=== PATIENT | female | born 1980 | race Caucasian/White ===

== ENCOUNTER 2024-06-17 09:14 | Emergency (ER) | payer BC, SELFPAY ==
--- NOTE | ~2024-06-17 | XR_ITS ---
EXAMINATION: XR ankle LT min 3V DATE: 06/17/2024 09:44 INDICATION: Left ankle injury and pain. TECHNIQUE: 4 views of left ankle were obtained. COMPARISON: None. FINDINGS: There is oblique fracture of distal fibula with medial aspect of the fracture line at the l evel of the tibial plafond. The distal fracture fragment demonstrates 2 mm posterolateral displacemen t. Joint spaces are normal. There is an enthesophyte at plantar aspect of calcaneal tuberosity. Later al ankle soft tissue swelling is noted. IMPRESSION: 1. Oblique fracture of distal fibula. Reviewed, dictated and finalized at location A. [employer]
[2024-06-17 09:28] VITALS: BP 148/137; PULSE 94; RESP 18; TEMP 37; O2SAT 100
--- NOTE | 2024-06-17 09:46 | PC.NURSE ---
PT DECLINED WHEELCHAIR TO RADIOLOGY AND ICE FOR COMFORT
--- NOTE | 2024-06-17 10:02 | ED_ITS ---
HPI - Extremity Injury (Lower) General Chief Complaint: Extremity Injury, Lower Stated Complaint: FALL Time Seen by Provider: 06/17/24 10:02 Source: patient Mode of arrival: ambulatory Limitations: no limitations History of Present Illness HPI Narrative: 43-year-old female presented for complaint of left ankle pain and swelling after injury last night. She states she was wearing wedge shoes when she stepped off of a [employer] and will the ankle. Endorses feeling a grinding sensation when she walks. Has been able to bear weight onto the heel. Endorses decreased range of motion due to pain. Taking Tylenol, ibuprofen. Pt resides in [place]. Related Data Home Medications ?Medication ?Instructions ?Recorded ?Confirmed ?Last Taken ?Type desogestrel-ethinyl estradiol 0.1 tablet 06/17/24 Unknown History mg/0.125 mg/0.15 mg-25 mcg tablet (Velivet Triphasic Regimen (28)) lisinopril 20 tablet 06/17/24 Unknown History mg-hydrochlorothiazide 12.5 mg tablet Allergies Allergy/AdvReac Type Severity Reaction Status Date / Time No Known Allergies Allergy Verified 06/17/24 09:42 Review of Systems Review of Systems: CONSTITUTIONAL: Denies body aches, fever, chills CARDIOVASCULAR: Denies chest pain, palpitations, or edema. RESPIRATORY: Denies cough or dyspnea. SKIN: Denies rash, itching, or wounds. MUSCULOSKELETAL: Reports left ankle pain and swelling NEUROLOGIC: Denies numbness, tingling, or weakness. All systems reviewed & are unremarkable except as noted in HPI and below PMFSH Comments At time of signature, I have reviewed and agree with nursing past medical, surgical, social and family history unless otherwise noted. Please see nursing chart for further information. There is no relevant family history pertinent to the presenting complaint Exam Narrative: GENERAL: Well-appearing CHEST: Speaks in full sentences. No respiratory distress. HEART: Regular rate and rhythm. Normal and equal peripheral pulses. EXTREMITIES: Left foot has normal strength and sensation,limited range of motion with flexion/extension/rotation of ankle due to pain with movement. Moderate lateral soft tissue swelling, tender with palpation. No ecchymosis, No open wounds,or obvious deformity; alignment normal, pulse palpable and equal bilaterally, skin warm, dry, pink. Capillary refill less than 3 seconds. SKIN: Warm, dry NEURO: Alert and oriented x3. PSYCH: Normal mood and affect Course Course Emergency Course: Patient is aware of diagnosis, understands and agrees to treatment plan. Anticipatory guidance given. Patient agrees to follow-up as directed and is aware of reasons to seek care at the emergency department. Portions of this record may have been created with voice recognition software Level of Care: Express Care Visit Vital Signs Vital signs: Vital Signs Temperature 98.6 F 06/17/24 09:28 Pulse Rate 94 06/17/24 09:28 Respiratory Rate 18 06/17/24 09:28 Blood Pressure 148/137 H 06/17/24 09:28 Pulse Oximetry 100 06/17/24 09:28 Oxygen Delivery Room Air 06/17/24 09:28 Temperature 98.6 F 06/17/24 09:28 Pulse Rate 94 06/17/24 09:28 Respiratory Rate 18 06/17/24 09:28 Blood Pressure 148/137 H 06/17/24 09:28 Pulse Oximetry 100 06/17/24 09:28 Oxygen Delivery Room Air 06/17/24 09:28 Reviewed Procedures Orthopedic Splinting/Casting left ankle: Splinting/Casting Date: 06/17/24 OCL: posterior Pre-Procedure Neuro Vascular Exam: normal Post-Procedure Neuro Vascular Exam: normal Additional Comments: Pt will use crutches from home. MDM - Extremity Injury (Lower) MDM Narrative Medical decision making narrative: Discussed physical exam findings and Xray; fx distal fibula. Pt says she has crutches to use. Posterior OCL applied. Provided with Dr Delgado, however pt resides in [place] and is here for the week. Advised supportive measures and signs/symptoms to go to the ER. Pt is appropriate for outpt treatment and f/u. Differential Diagnosis Differential diagnosis: Likely ankle sprain and strain and ankle fracture Imaging Data Radiologist's impression: Patient: Guadalupe Soto : 1980 MR#: [id number] Age: 43 Acct:[id number] Loc: [facility] ADM Date: 06/17/24Attending Dr: Ordering Physician: Ellen Mack APRN Date of Service: 06/17/24 Procedure(s): XR ankle LT min 3V Accession Number(s): [id number] cc: Ellen Mack APRN; EX ASSISTANT/PROGRAM DIRECTOR PHYSICIAN~ EXAMINATION: XR ankle LT min 3V DATE: 06/17/2024 09:44 INDICATION: Left ankle injury and pain. TECHNIQUE: 4 views of left ankle were obtained. COMPARISON: None. FINDINGS: There is oblique fracture of distal fibula with medial aspect of the fracture line at the level of the tibial plafond. The distal fracture fragment demonstrates 2 mm posterolateral displacement. Joint spaces are normal. There is an enthesophyte at plantar aspect of calcaneal tuberosity. Lateral ankle soft tissue swelling is noted. IMPRESSION: 1. Oblique fracture of distal fibula. Discharge Plan Discharge Clinical Impression: Fracture of distal end of fibula Patient Disposition: Home, Self-Care Condition: Stable Instructions: Antibiotic Form, Ankle Fracture (ED), Splint Care (ED) Additional Instructions: Rest, ice and elevate the affected extremity. Do not walk on the temporary cast. Motrin 800mg every 8 hours, as needed, for pain (take with food). Tylenol 1000mg every 8 hours. Keep splint clean, dry and in place. Use garbage bag while showering to keep splint dry. Use crutches to avoid bearing weight. Go to the ER immediately for increased pain, tingling/numbness, swelling, redness, and fever Follow up with Orthopedic Surgery in 1 day for further evaluation - please call tomorrow for an appointment with Dr Delgado. Notify your PCP tomrorow as well. Patient Language: Thai Prescriptions: New ibuprofen 800 mg tablet 800 mg PO TID PRN (Reason: pain) Qty: 15 0RF No Action lisinopril-hydrochlorothiazide 20-12.5 mg tablet Velivet Triphasic Regimen (28) 0.1/.125/.15-25 mg-mcg tablet Follow-up/Referrals: PHYSICIAN,EX ASSISTANT/PROGRAM DIRECTOR [Primary Care Provider] - Joni Delgado MD [Physician] - (There is oblique fracture of distal fibula with medial aspect of the fracture line at the level of the tibial plafond. The distal fracture fragment demonstrates 2 mm posterolateral displacement. Joint spaces are normal. There is an enthesophyte at plantar aspect of calcaneal tuberosity. Lateral ankle soft tissue swelling is noted) Time of Disposition: 10:18
== END 2024-06-17 10:45 | disposition home or self-care (01) ==
PROVIDERS: Emergency Provider Nurse Practitioner Family
DX: S82.832A Other fracture of upper and lower end of left fibula, initial encounter for closed fracture (principal); X50.9XXA Other and unspecified overexertion or strenuous movements or postures, initial encounter; I10 Essential (primary) hypertension
CPT/HCPCS: 29515; 73610; 99204; G0463